=== PATIENT | female | born 1965 | race Caucasian/White ===

== ENCOUNTER 2022-06-29 11:20 | Observation (INO) | payer OTHER, SELFPAY ==
[2022-06-29] VITALS (21 sets, daily range): BP systolic 114–138; BP diastolic 67–89; PULSE 73–90; RESP 16–18; TEMP 36.5–36.7; O2SAT 93–99; BMI 29.2
[2022-06-29] MEDS: 0.9 % SODIUM CHLORIDE 1000 ml 1,000 ML IV (12:03)
[2022-06-29] MEDS: ONDANSETRON 2 MG/ML inj 4 MG IVP (12:07)
[2022-06-29] MEDS: HYDROmorphone 0.5 mg/0.5 ml inj 1 MG IVP (12:09)
[2022-06-29] MEDS: KETOROLAC 30 MG/ML inj IVP (12:14)
--- NOTE | 2022-06-29 12:32 | CRLHL7_ITS ---
For Patients: As a result of the Century Cures Act, medical imaging exams and procedure reports are released immediately into your electronic medical record. You may view this report before your referring provider. If you have questions, please contact your health care provider. Indication: Injury and pain Technique: Left ankle 3 views. Comparison: None Findings: Nondisplaced fracture of the lateral malleolus with overlying soft tissue swelling. Mortise intact. Intact distal tibia. Hindfoot alignment normal. Impression: Nondisplaced lateral malleolus fracture. Dictated by You Riggs MD @ 06/29/2022 1:55:49 PM (Electronically Signed)
--- NOTE | 2022-06-29 12:32 | CRLHL7_ITS ---
For Patients: As a result of the Century Cures Act, medical imaging exams and procedure reports are released immediately into your electronic medical record. You may view this report before your referring provider. If you have questions, please contact your health care provider. INDICATION: Patellar knee injury, fall TECHNIQUE: Knee radiograph 3 views right COMPARISON: 01/30/2020 FINDINGS: Bone: On the lateral exam, there is a subtle linear lucency in the mid body of the patella. An intramedullary nikki is present in the proximal tibia. A remote fracture deformity is present in the proximal fibula. Joint: The medial, lateral, and patellofemoral compartments are unremarkable. A small knee effusion is present. Soft tissue: Unremarkable. No radiopaque foreign bodies are seen. IMPRESSIONS: 1. On the lateral exam, there is a subtle linear lucency in the mid body of the patella. Correlation with physical exam for focal tenderness is recommended to exclude a nondisplaced fracture. 2. A small knee effusion is present. Dictated by Mu Dillon MD @ 06/29/2022 1:42:43 PM Dictated by: Mu Dillon MD @ 06/29/2022 13:43:42 (Electronically Signed)
--- NOTE | 2022-06-29 14:24 | ED_ITS ---
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 She is unable to bear weight or walk presented to the emergency room for further assessment. Denies any injury to her neck back shoulders or hip, she has a previous right leg injury, that resulted in a nikki, and screws. complaint: knee injury and ankle injury Injury: Left: ankle and Right: knee Type of Injury: inversion Severity: severe Relieving factors: nothing Exacerbating factors: weight bearing Context: fall Associated symptoms: snap/pop sensation Other symptoms: none Related Data Home Medications Medication Instructions Recorded Confirmed No Known Home Medications 06/29/22 06/29/22 Allergies Allergy/AdvReac Type Severity Reaction Status Date / Time No Known Drug Allergies Allergy Verified 06/29/22 11:35 Review of Systems Status of ROS: Reports: 10 or more systems reviewed and unremarkable except as noted in History and below PFSH PFS Social History Smoking Status: Former smoker Do you use any of these nicotine containing products: None Second hand tobacco smoke exposure: No How often do you have a drink containing alcohol: 2-3 times a week How many standard drinks containing alcohol do you have on a typical day: 5 or 6 How often do you have six or more drinks on one occasion: Weekly AUDIT-C Alcohol total score: 8 Non-prescribed substance use: denies use Exam Narrative: Exam Narrative: Patient is seen in room 2 in no apparent distress her neck is supple full range of motion pupils equal round reactive to light, chest is clear heart sounds are normal her abdomen is soft there is no guarding, her right knee does not move it all is swollen with an obvious effusion, she is more tender medially than laterally, she does not really have more than 10? of extension, and more than 30? of flexion. Left ankle is also very swollen over the lateral malleolar region, does not really have a lot of movement of dorsiflexion plantar flexion her DP and posterior tibial pulses are normal bilaterally as is her popliteal pulses, sensations normal, hips have normal range of motion. Const: Vital Signs, click to edit/add: Vital Signs - 24 hr 06/29/22 11:32 06/29/22 12:21 06/29/22 12:22 Temperature 97.8 F Pulse Rate 76 79 Pulse Rate [Pulse Oximeter] 84 Respiratory Rate 18 Blood Pressure 138/89 Blood Pressure [Ri ght Upper Arm] 136/78 Pulse Oximetry 97 95 93 Oxygen Delivery Me thod Room Air 06/29/22 12:23 06/29/22 12:30 06/29/22 12:32 Temperature Pulse Rate 79 90 85 Pulse Rate [Pulse Oximeter] Respiratory Rate Blood Pressure 132/75 Blood Pressure [Ri ght Upper Arm] Pulse Oximetry 94 94 94 Oxygen Delivery Me thod 06/29/22 13:00 06/29/22 13:01 06/29/22 13:02 Temperature Pulse Rate 89 89 89 Pulse Rate [Pulse Oximeter] Respiratory Rate Blood Pressure 138/77 Blood Pressure [Ri ght Upper Arm] Pulse Oximetry 99 96 99 Oxygen Delivery Me thod 06/29/22 13:30 06/29/22 13:35 06/29/22 14:00 Temperature Pulse Rate 76 82 84 Pulse Rate [Pulse Oximeter] Respiratory Rate Blood Pressure Blood Pressure [Ri ght Upper Arm] Pulse Oximetry 98 97 97 Oxygen Delivery Me thod 06/29/22 14:05 06/29/22 14:30 06/29/22 14:35 Temperature Pulse Rate 87 79 76 Pulse Rate [Pulse Oximeter] Respiratory Rate Blood Pressure Blood Pressure [Ri ght Upper Arm] Pulse Oximetry 99 97 96 Oxygen Delivery Me thod Course Reevaluation(s) Reevaluation #1: I had Steffi Cantor from Orthopedics see the patient also. I also had Dr. Frederick, from [facility] medicine, and we will have to mid the patient she cannot bear weight on either extremity, consideration of an MRI of her right knee tomorrow. There will be some scatter from her right leg mentation, but this will give us a better idea Vital Signs Vital signs: Initial Vital Signs Temperature 97.8 F 06/29/22 11:32 Temperature Source Temporal Artery Scan 06/29/22 11:32 Pulse Rate 84 06/29/22 11:32 Respiratory Rate 18 06/29/22 11:32 Blood Pressure 136/78 06/29/22 11:32 Blood Pressure Mean 97 06/29/22 11:32 Blood Pressure Position Supine 06/29/22 11:32 Pulse Oximetry 97 06/29/22 11:32 Oxygen Delivery Method 06/29/22 11:32 Vital Signs Temperature 97.8 F 06/29/22 11:32 Pulse Rate 84 06/29/22 11:32 Respiratory Rate 18 06/29/22 11:32 Blood Pressure 136/78 06/29/22 11:32 Pulse Oximetry 97 06/29/22 11:32 Oxygen Delivery Method 06/29/22 11:32 Temperature 97.8 F 06/29/22 11:32 Pulse Rate 76 06/29/22 14:35 Respiratory Rate 18 06/29/22 11:32 Blood Pressure 138/77 06/29/22 13:01 Pulse Oximetry 96 06/29/22 14:35 Oxygen Delivery Method 06/29/22 11:32 MDM - Extremity Injury (Lower) MDM Narrative Medical decision making narrative: Patient is seen and assessed, we will order x-rays we will give IV pain medication for this, Differential Diagnosis Differential diagnosis: Likely ankle sprain and strain, acute internal derangement of knee and ankle fracture Medical Records Attestation: I reviewed the patient's medical records. Imaging Data X-ray right knee, x-ray left ankle: Radiologist's impression: Patient: MIKKI SANCHEZ Facility: [facility] Site . Site : 1965 Study: XRay Extremity Left ANKLE 3V-06/29/2022 1:05:24 PM Ordering Physician: Rasheeda Azul Final Report: Indication: Injury and pain Technique: Left ankle 3 views. Comparison: None Findings: Nondisplaced fracture of the lateral malleolus with overlying soft tissue swelling. Mortise intact. Intact distal tibia. Hindfoot alignment normal. Impression: Nondisplaced lateral malleolus fracture. Dictated by You Riggs MD @ 06/29/2022 1:55:49 PM (Electronic Signature) Patient: [facility] Facility: [facility] Site . Site : 1965 Study: XRay Knee Right 3 VIEW-06/29/2022 1:06:02 PM Ordering Physician: Rasheeda Azul Final Report: INDICATION: Patellar knee injury, fall TECHNIQUE: Knee radiograph 3 views right COMPARISON: 01/30/2020 FINDINGS: Bone: On the lateral exam, there is a subtle linear lucency in the mid body of the patella. An intramedullary nikki is present in the proximal tibia. A remote fracture deformity is present in the proximal fibula. Joint: The medial, lateral, and patellofemoral compartments are unremarkable. A small knee effusion is present. Soft tissue: Unremarkable. No radiopaque foreign bodies are seen. IMPRESSIONS: 1. On the lateral exam, there is a subtle linear lucency in the mid body of the patella. Correlation with physical exam for focal tenderness is recommended to exclude a nondisplaced fracture. 2. A small knee effusion is present. Dictated by Mu Dillon MD @ 06/29/2022 1:42:43 PM Dictated by: Mu Dillon MD @ 06/29/2022 13:43:42 (Electronic Signature) Discharge Plan Discharge Clinical Impression: Fracture of distal end of left fibula, Patellar sleeve fracture of right knee Patient Disposition: Home w/ Parent or Adult Condition: Stable Instructions: Leg Fracture (ED), Patellar Fracture (ED), Patellar Fracture Repair (DC), Closed Reduction Internal Fixation of Leg Fracture in Adults (DC) Additional Instructions: Follow up appointment scheduled at the [facility] on 07/01 with a 1:10pm arrival time. [facility] [address] [place] [id number] Patient will be discharged home, with crutches, nonweightbearing on left leg. Follow-up with Orthopedics, she may decide to be seen by [facility] Prescription given for Percocet, keep leg elevated should be seen by Orthopedics within the next 48 hours, Prescriptions: No Action No Known Home Medications Follow Up/Referrals: Provider,Not a Local [Primary Care Provider] - Stand Alone Forms: [employer] Info Instructions
--- NOTE | 2022-06-29 15:40 | ED.NURSE ---
Provided crutches to pt, attempted to stand pt up from bed to trial crutch walking. Pt unable to bear weight on either leg due to pain. notified.
--- NOTE | 2022-06-29 16:33 | W.PC.EDHO ---
Primary Language: Mongolian Preferred Language: Orientation Status: [x] Alert & Oriented [] Slight Confusion [] Known Dx Dementia Transfers By: [] Assist of 1 x Assist of 2 [] Lift Active Medications Discontinued Medications Generic Name Dose Route Start Last Admin Trade Name Marleny PRN Reason Stop Dose Admin Hydromorphone HCl 1 mg 06/29/22 11:49 06/29/22 12:09 Hydromorphone 0.5 Mg/0.5 Ml Inj IVP 06/29/22 11:50 1 mg ONCE ONE Administration Sodium Chloride 1,000 mls @ 1,000 mls/hr 06/29/22 12:00 06/29/22 13:22 0.9 % Sodium Chloride 1000 Ml IV 06/29/22 12:59 Infused .Q1H YUNG Infusion Ketorolac Tromethamine 30 mg 06/29/22 11:49 06/29/22 12:14 Ketorolac 30 Mg/Ml Inj IVP 06/29/22 11:50 30 mg ONCE ONE Administration Ondansetron HCl 4 mg 06/29/22 11:49 06/29/22 12:07 Ondansetron 2 Mg/Ml Inj IVP 06/29/22 11:50 4 mg ONCE ONE Administration Description of Symptoms ED Triage Present Problem pt walking over grate and ankle twisted, pt fell, Description injured L ankle and r knee ED Triage Date of Onset of 06/29/22 Symptoms Pain Pain Description [Left Ankle] Sharp Pain Intensity [Left Ankle] 6 Pain Intensity [Left Ankle] 5 Pain Intensity 2 Pain Intensity 3 Pain Intensity 3 Pain Intensity 3 Pain Intensity 3 Pain Intensity 3 Pain Intensity 6 Pain Intensity 6 Pain Scale Used [Left Ankle] Numeric (1 - 10) Pain Scale Used Numeric (1 - 10) Pain Scale Used Numeric (1 - 10) Pain Scale Used Numeric (1 - 10) Pain Scale Used Numeric (1 - 10) Pain Scale Used Numeric (1 - 10) Pain Scale Used Numeric (1 - 10) Pain Scale Used Numeric (1 - 10) Pain Scale Used Numeric (1 - 10) IV Insertion/Site Date of IV Line Insertion [ 06/29/22 Right Antecubital] Oxygen Administration Pulse Oximetry 96 Pulse Oximetry 97 Pulse Oximetry 99 Pulse Oximetry 97 Pulse Oximetry 97 Pulse Oximetry 98 Pulse Oximetry 99 Pulse Oximetry 96 Pulse Oximetry 99 Pulse Oximetry 94 Pulse Oximetry 94 Pulse Oximetry 94 Pulse Oximetry 93 Pulse Oximetry 95 Pulse Oximetry 97 Oxygen Delivery Method Room Air
--- NOTE | 2022-06-29 16:40 | ED.NURSE ---
Report called to M/S RN.
[2022-06-29] MEDS: OxyCODONE/APAP 5-325 TABLET 2 TAB PO (16:44)
--- NOTE | 2022-06-29 16:48 | P.IMHP_ITS ---
Hospitalist- H&P: HPI History of Present Illness Date Seen: 06/29/22 Chief complaint: broken L ankle Narrative: Padmini Rojo is a 56 year old female who presented to the hospital after a fall at work. 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 She had immediate pain in her left ankle and right knee and was unable to bear secondary to discomfort. ER course and findings: - nondisplaced fracture of left lateral malleolus - small knee effusion with subtle linear lucency of patella on right knee x-ray - Patient seen by Orthopedic surgery in the emergency room; left lateral malleolus fracture is non operative, they recommend a right knee MRI Patient is unable to bear weight for discharge home and requires further imaging; she will be admitted to the hospital for therapies and pain control. Padmini is generally healthy; she takes no medications on a daily basis. Her PCP is Dr. Mendiola locally. She had a previous ORIF on the right, after a tib-fib fracture in 2019, she has also had C-sections. She is a nonsmoker, regular alcohol user, no concern for withdrawals. 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 Three grown children. Review of Systems Status of ROS: Reports: 10 or more systems reviewed and unremarkable except as noted in History and below [facility] Medical History (Updated 06/29/22 @ 17:03 by Ana Frederick MD) History of fracture of tibia Surgical History (Updated 06/29/22 @ 17:03 by Ana Frederick MD) History of section Social History Smoking Status: Former smoker Do you use any of these nicotine containing products: None Second hand tobacco smoke exposure: No How often do you have a drink containing alcohol: 2-3 times a week How many standard drinks containing alcohol do you have on a typical day: 5 or 6 How often do you have six or more drinks on one occasion: Weekly AUDIT-C Alcohol total score: 8 Non-prescribed substance use: denies use Meds Home Medications and Allergies Home Medications Medication Instructions Recorded Confirmed Type No Known Home Medications 06/29/22 06/29/22 History Allergies Allergy/AdvReac Type Severity Reaction Status Date / Time No Known Drug Allergies Allergy Verified 06/29/22 11:35 Exam Narrative: Exam Narrative: GEN: Alert and oriented, laying comfortably in ER bed and speaking in full sentences HEENT: Normal external ears, EOMIs bilaterally CV: RRR, No concerning murmurs, rubs, or gallops R: LCTA bilaterally without concerning wheezing, rales, or rhonchi Ext: wwp, no concerning edema, has splint over left ankle and brace over right knee Skin: No concerning skin lesions or rashes on exposed skin Neuro: Nonfocal Psych: Appropriate Const: Vital Signs, click to edit/add: Vital Signs - 24 hr 06/29/22 11:32 06/29/22 12:21 06/29/22 12:22 Temperature 97.8 F Pulse Rate 76 79 Pulse Rate [Pulse Oximeter] 84 Respiratory Rate 18 Blood Pressure 138/89 Blood Pressure [Ri ght Upper Arm] 136/78 Pulse Oximetry 97 95 93 Oxygen Delivery Me od Room Air 06/29/22 12:23 06/29/22 12:30 06/29/22 12:32 Temperature Pulse Rate 79 90 85 Pulse Rate [Pulse Oximeter] Respiratory Rate Blood Pressure 132/75 Blood Pressure [Ri ght Upper Arm] Pulse Oximetry 94 94 94 Oxygen Delivery Me thod 06/29/22 13:00 06/29/22 13:01 06/29/22 13:02 Temperature Pulse Rate 89 89 89 Pulse Rate [Pulse Oximeter] Respiratory Rate Blood Pressure 138/77 Blood Pressure [Ri ght Upper Arm] Pulse Oximetry 99 96 99 Oxygen Delivery La thod 06/29/22 13:30 06/29/22 13:35 06/29/22 14:00 Temperature Pulse Rate 76 82 84 Pulse Rate [Pulse Oximeter] Respiratory Rate Blood Pressure Blood Pressure [Ri ght Upper Arm] Pulse Oximetry 98 97 97 Oxygen Delivery Me thod 06/29/22 14:05 06/29/22 14:30 06/29/22 14:35 Temperature Pulse Rate 87 79 76 Pulse Rate [Pulse Oximeter] Respiratory Rate Blood Pressure Blood Pressure [Ri ght Upper Arm] Pulse Oximetry 99 97 96 Oxygen Delivery Me thod Hospitalist - H&P: Result Imaging XRAY: Attestation: I have reviewed the pertinent imaging results. Radiologist's impression: For Patients:? As a result of the Cures Act, medical imaging exams and procedure reports are released immediately into your electronic medical record.? You may view this report before your referring provider.? If you have questions, please contact your health care provider. Indication: Injury and pain Technique: Left ankle 3 views. Comparison: None Findings: Nondisplaced fracture of the lateral malleolus with overlying soft tissue swelling. Mortise intact. Intact distal tibia. Hindfoot alignment normal. Impression: Nondisplaced lateral malleolus fracture. Dictated by You Riggs MD @ 06/29/2022 1:55:49 PM INDICATION: Patellar knee injury, fall TECHNIQUE: Knee radiograph 3 views right COMPARISON: 01/30/2020 FINDINGS: Bone: On the lateral exam, there is a subtle linear lucency in the mid body of the patella. An intramedullary nikki is present in the proximal tibia. A remote fracture deformity is present in the proximal fibula. Joint: The medial, lateral, and patellofemoral compartments are unremarkable. A small knee effusion is present. Soft tissue: Unremarkable. No radiopaque foreign bodies are seen. IMPRESSIONS: 1. On the lateral exam, there is a subtle linear lucency in the mid body of the patella. Correlation with physical exam for focal tenderness is recommended to exclude a nondisplaced fracture. 2. A small knee effusion is present. Dictated by Mu Dillon MD @ 06/29/2022 1:42:43 PM Dictated by: Mu Dillon MD @ 06/29/2022 13:43:42 Assessment and Plan Assessment and plan (1) Fracture of distal end of left fibula: Status: Acute (2) Patellar sleeve fracture of right knee: Status: Acute Plan - appreciate input from Orthopedic Surgery - MRI of R knee ordered - pain control - PT and OT ordered to assist with discharge planning so a Leodan 0
[2022-06-29 17:33] LABS: PCR FLU A Negative PCR FLU A (Negative); PCR FLU B Negative PCR FLU B (Negative)
[2022-06-29 17:34] LABS: SARS PCR* Negative SARS-CoV-2 (Negative)
[2022-06-29] MEDS: HYDROmorphone 2 MG TABLET PO (20:44)
[2022-06-29] MEDS: ACETAMINOPHEN 325 MG TABLET 975 MG PO (20:44)
--- NOTE | 2022-06-29 23:41 | PC.NURSE ---
Shift [id number]- Patient arrives to floor at approximately 1800. She is able to transfer herself from cart to bed, though slide offered. She states need to use bathroom, bedpan offered. She became uncomfortable with help using bedpan and asked to wait. She is offered to use it to her ability independently and to her comfort level and we will assist as needed. in this evening and helps her use bedpan. Patient declines pain medication until tonight, PRN pain medication given- though she states little relief. IV to be initiated for further pain medication administration. Appetite is intact.
--- NOTE | 2022-06-30 | CRLHL7_ITS ---
For Patients: As a result of the Century Cures Act, medical imaging exams and procedure reports are released immediately into your electronic medical record. You may view this report before your referring provider. If you have questions, please contact your health care provider. HISTORY: Knee pain and swelling after falling injury. TECHNIQUE: Routine knee protocol. FINDINGS: Bones and soft tissues: There is an undisplaced multi directional fracture involving the inferior 1/2 of the patella with intra-articular extension. There is bone marrow and soft tissue edema about this region but no significant distraction of the fragments is noted. This fracture is not evident on the plain film study of 06/29/2022. The long bones appear intact. There is a large lipohemarthrosis present. Extensor mechanism: The quadriceps and patellar tendons are intact. Medial compartment: Medial meniscus: The medial meniscus is intact without evidence for tearing. Articular cartilage: Moderate grade 2/3 chondromalacia is present. Lateral compartment: Lateral meniscus: The lateral meniscus is intact without evidence for tearing. Articular cartilage: The articular cartilage surfaces are smooth and normally maintained. Patellofemoral compartment: Mild grade 2 chondromalacia of both facets the patella is noted. Ligaments: The anterior cruciate, posterior cruciate, medial collateral and lateral collateral ligaments are intact. Incidental note is made of metallic nikki in the proximal femur. IMPRESSION: 1. Nondisplaced intra-articular fracture of the lower 1/2 of the patella. No meniscus or ligament tear is noted. 2. 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 Dictated by Yariel Thompson MD @ 06/30/2022 12:21:44 PM (Electronically Signed)
[2022-06-30] MEDS: LORazepam 0.5 MG TABLET PO ×2 (01:02→02:32)
[2022-06-30 03:00] VITALS: BP 110/72; PULSE 77; RESP 16; TEMP 36.5; O2SAT 95
[2022-06-30] MEDS: KETOROLAC 30 MG/ML inj IVP ×3 (05:34→22:53)
[2022-06-30] MEDS: HYDROmorphone 2 MG TABLET PO ×4 (05:34→18:12)
--- NOTE | 2022-06-30 06:39 | PC.NURSE ---
: pt pleasant and cooperative. C/o pain 01/05, see eMAR. Pt in bed throughout shift, requests bedpan as needed. VSS. PRN Ativan given for sleep, pt was unable to get much sleep. 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 ??
[2022-06-30 07:07] LABS: Basophils Percent Auto 0.7 % (0.0-3.0); Eosinophils Percent Auto 2.8 % (0.0-7.0); Hematocrit 36.7 % (33.0-51.0); Hemoglobin* 12.2 gm/dL (12.0-16.0); Immature Granulocytes Abs Auto 0.01 K/uL (0.00-0.30); Lymphocytes Percent Auto 30.2 % (20-44); Mean Corpuscular HGB Conc 33 gm/dL (32-36); Mean Corpuscular Hemoglobin 31 pg (26-34); Mean Corpuscular Volume 93 fL (80-100); Monocytes Percent Auto 8.5 % (0.0-11.0); Neutrophils Percent Auto 57.6 % (42.0-72.0); Platelet Count* 165 K/uL (140-440); RDW Coefficient of Variation % 12.8 % (11.5-15.5); Red Blood Count 3.94 m/uL (4.00-5.20); White Blood Count* 4.34 K/uL (4.50-11.00)
[2022-06-30 07:16] LABS: Chloride* 107 mmol/L (96-114)
[2022-06-30 07:17] LABS: Potassium* 3.6 mmol/L (3.6-5.1); Sodium* 140 mmol/L (135-149)
[2022-06-30 07:19] LABS: Creatinine* 0.6 mg/dL (0.5-1.5); Est. Creatinine Clearance* 91.48; Estimated Glomerular Filt Rate 106 ml/min
[2022-06-30 07:20] LABS: Blood Urea Nitrogen* 13 mg/dL (7-30); Calcium* 8.5 mg/dL (8.4-10.6); Carbon Dioxide* 25 mmol/L (20-32); Glucose* 97 mg/dL (60-115); Slide Review Reflex No
[2022-06-30 08:28] VITALS: BP 110/74; PULSE 77; PULSE 82; RESP 16; TEMP 36.5; O2SAT 97
[2022-06-30 11:00] VITALS: BP 118/74; PULSE 79; RESP 16; TEMP 36.6; O2SAT 97
[2022-06-30] MEDS: ACETAMINOPHEN 325 MG TABLET 975 MG PO ×2 (12:32→22:53)
[2022-06-30] MEDS: SENNOSIDES/DOCUSATE TABLET 1 TAB PO (12:32)
--- NOTE | 2022-06-30 13:09 | P.ORCN_ITS ---
History of Present Illness HPI Time Seen by Provider: 06:30 Date Seen: 06/30/22 Consult date: 06/29/22 Requesting physician: Jorge Alberto Vanessa Chief complaint: broken L ankle Narrative: I saw Padmini yesterday in the emergency room and again this morning. She is a very pleasant 56-year-old young lady, who presented to the emergency room yesterday, date of injury 06/29/2022 for evaluation of right knee and left ankle discomfort. 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 She was unable to bear weight on either extremity. She has had a nikki and screws placement in her right tibia previously. Since she was unable to bear weight on both lower extremity she was admitted to the hospital. She was placed into a knee immobilizer on the right after a fracture of the patella was likely seen on x-ray and fracture of the left distal fibula. She was placed into a Sedrick Cain splint on the left lower extremity. Review of Systems Narrative: Patient denies nausea, vomiting, fever, chills, chest pain, shortness of breath [facility] Medical History (Updated 06/30/22 @ 13:20 by Steffi Ramos PA-C) History of fracture of tibia Surgical History History of section Social History Smoking Status: Former smoker Do you use any of these nicotine containing products: None Second hand tobacco smoke exposure: No How often do you have a drink containing alcohol: 2-3 times a week How many standard drinks containing alcohol do you have on a typical day: 5 or 6 How often do you have six or more drinks on one occasion: Weekly AUDIT-C Alcohol total score: 8 Non-prescribed substance use: denies use Meds Home Medications and Allergies Home Medications Medication Instructions Recorded Confirmed Type No Known Home Medications 06/29/22 06/29/22 History Allergies Allergy/AdvReac Type Severity Reaction Status Date / Time No Known Drug Allergies Allergy Verified 06/29/22 11:35 Ortho Exam Narrative Exam Narrative: Examination of the right knee shows the skin is intact. No erythema or warmth or evidence of infection. Large effusion is present. Unable to straight leg raise. Tenderness over the patella. Exquisite tenderness over the medial proximal tibia. Nontender over the lateral proximal tibia. Surgical scars are well-healed right lower extremity. The knee is stable to varus and valgus s tress exams and Allen's, anterior drawer, posterior drawer, however she has significant pain with these maneuvers. Difficult to assess strength about the knee and distally due to pain level. Sensation is intact to light touch, capillary refill less than 2 seconds. Bilateral calves are soft and nontender. No pretibial edema. No significant soft tissue edema about the knee. The splint is removed. Examination of the left ankle shows swelling over the lateral malleolus. No ecchymosis currently. No erythema or warmth or sign of infection. No medial ankle swelling. Nontender over the medial malleolus or medial deltoid ligament. Nontender over the ATFL or CFL. Very tender over the distal fibula. Able to range the ankle. Nontender over the proximal tibia and fibula. Range of motion of the left knee is normal and without pain. Range of motion of the toes is normal without pain. CMS intact left lower extremity. After placing her into a medium Cam walker, tall, she is comfortable in this brace and she is able to stand comfortably and weightbear on the left lower extremity without pain. She is also placed into a Tubigrip size D for comfort. Const Vital Signs, click to edit/add: Vital Signs - 24 hr 06/29/22 13:30 06/29/22 13:35 06/29/22 14:00 Temperature Pulse Rate 76 82 84 Pulse Rate [Left Dorsalis Pedis] Respiratory Rate Blood Pressure [Left Arm] Blood Pressure [Right Arm] Pulse Oximetry 98 97 97 Oxygen Delivery Method 06/29/22 14:05 06/29/22 14:30 06/29/22 14:35 Temperature Pulse Rate 87 79 76 Pulse Rate [Left Dorsalis Pedis] Respiratory Rate Blood Pressure [Left Arm] Blood Pressure [Right Arm] Pulse Oximetry 99 97 96 Oxygen Delivery Method 06/29/22 14:36 06/29/22 16:47 06/29/22 17:00 Temperature Pulse Rate 74 81 77 Pulse Rate [Left Dorsalis Pedis] Respiratory Rate Blood Pressure [Left Arm] Blood Pressure [Right Arm] Pulse Oximetry 97 96 95 Oxygen Delivery Method 06/29/22 17:30 06/29/22 18:36 06/29/22 18:36 Temperature 98.1 F 98.1 F Pulse Rate 73 Pulse Rate [Left Dorsalis Pedis] 74 74 Respiratory Rate 16 16 Blood Pressure [Left Arm] 125/74 Blood Pressure [Right Arm] 125/74 Pulse Oximetry 93 97 97 Oxygen Delivery Method Room Air 06/29/22 23:00 06/29/22 23:00 06/30/22 03:00 Temperature 97.7 F 97.7 F Pulse Rate Pulse Rate [Left Dorsalis Pedis] 75 75 77 Respiratory Rate 16 16 16 Blood Pressure [Left Arm] 114/67 110/72 Blood Pressure [Right Arm] Pulse Oximetry 94 95 Oxygen Delivery Method Room Air Room Air Results Labs Labs: Laboratory Results - last 48 hr 06/29/22 06/30/22 06/30/22 16:52 06:38 06:38 WBC 4.34 L RBC 3.94 L Hgb 12.2 Hct 36.7 MCV 93 MCH 31 MCHC 33 RDW Coeff of Reva 12.8 Plt Count 165 Neut % (Auto) 57.6 Lymph % (Auto) 30.2 [place] % (Auto) 8.5 Eos % (Auto) 2.8 Baso % (Auto) 0.7 Neut # (Auto) 2.50 Lymph # (Auto) 1.30 [place] # (Auto) 0.40 Eos # (Auto) 0.10 Baso # (Auto) 0.00 Abs Immat Gran (auto) 0.01 Sodium 140 Potassium 3.6 Chloride 107 Carbon Dioxide 25 BUN 13 Creatinine 0.6 Estimated Creat Clear 91.48 Estimated GFR 106 Glucose 97 Calcium 8.5 SARS-CoV-2 (PCR) Negative SARS-CoV-2 Influenza Type A (PCR) Negative PCR FLU A Influenza Type B (PCR) Negative PCR FLU B Assessment and Plan Assessment and plan (1) Fracture of distal end of left fibula: Status: Acute Assessment and Plan: After the splint is removed on the left lower extremity, a size D Tubigrip is applied and a medium a tall cam walker. She is allowed to stand up in her room next to her bed, holding onto hand rails and is able to bear weight on the left lower extremity without pain. She tolerated this very well. This is encouraging. She is dispensed a Tubigrip and medium Cam walker. She can weightbear as tolerated left lower extremity. Total time spent: Total time spent is greater than 50% in coordination of care (as documented) at patient's floor/unit and/or counseling patient: (2) Right patella fracture: Problem comment: Date of injury 06/30/2022, work Status: Acute Assessment and Plan: An MRI is performed today of the right lower extremity knee. This shows a nondisplaced intra-articular fracture of the lower 1/2 of the patella. No meniscus or ligamentous tear is noted. 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 Metallic nikki in the tibia. There is a large effusion. Patient is able to weightbear as tolerated in a knee immobilizer right lower extremity. Physical therapy is ordered to assess her weight-bearing. She can ambulate as tolerated in the knee immobilizer. She will refrain from range of motion of the right knee. Physical therapy has been ordered to assess ambulation and safety upon discharge. If she and physical therapy determine she is safe to return home today, she will discharge to home later today. I have spoken with Dr. Berry regarding the same. Patient should be encouraged to ambulate frequently, every hour throughout the day and pump calves while at rest to prevent DVT. Dr. Berry will look into determining if DVT prophylaxis is needed. Note, dictation performed with voice recognition, and as a result, wrong word or sound like substitutions may have occurred. There may be areas in the script that have gone on detected. Please consider this when interpreting information found in the chart. Plan Follow-up with orthopedics in a week with new x-rays of the right knee and left ankle. If the ankle remains stable, will continue cam walker for 6 weeks. Will continue knee immobilizer for 6 weeks as well if the fracture remains nondisplaced. She can weight bear as tolerated bilateral lower extremities.
--- NOTE | 2022-06-30 14:39 | PM.IMPN1 ---
Progress Note: A&P Assessment and plan (1) Right patella fracture: Problem details: Date of injury 06/30/2022, work Status: Acute (2) Fracture of distal end of left fibula: Status: Acute (3) Right knee pain: Status: Acute (4) Patellar sleeve fracture of right knee: Status: Acute Plan Appreciate Ortho's recommendations. Patient unable to ambulate more than 3 steps this afternoon with PT, due to pain. We discussed MRI results, pain medications, return to work. As per Ortho, patient should be encouraged to ambulate frequently, every hour throughout the day and pump calves while at rest to prevent DVT. Discussed the symptoms of VTE with the patient. She has no personal history of bleeding or clotting disorders. Since she is not in a plaster cast, I think the risk of anticoagulation outweighs the benefit. Continue working with PT and OT today. Plan on discharging home in the morning. If she is unable to ambulate, then perhaps she could use a wheelchair at home otherwise we will have to consider SNF. Time Spent With Patient Total time spent: Today I spent 35 minutes rounding on the patient. Greater than 50% included discussing care with the patient, team, reviewing data, updating and managing the care plan. Subjective Time Seen by Provider: 08:05 Date Seen: 06/30/22 Interval history: This morning Padmini said she was feeling well. She had not yet ambulated because we did not yet have the MRI results. This afternoon, her and the physical therapist were in the room when I saw her to give her results and discuss plan for going home. Her affect was much changed from the morning. She was tense and terse. When I gave her the results, she asked Isn't there anything else? She also had questions about pain medications and return to work. Exam Narrative: Exam Narrative: General: No acute distress. Awake, alert, oriented x3. No pallor. No jaundice. Cardiovascular: Regular rate and rhythm. No murmurs, gallops, or rubs. Respiratory: Clear to auscultation bilaterally. No wheezes or crackles. Abdomen: Bowel sounds present. Soft, nondistended, nontender. Extremities: Left lower extremity is in a Cam boot. There is some small ecchymosis just below the lateral knee. Right lower extremity knee immobilizer was removed from my exam and then replaced afterward. Right knee is edematous and ecchymotic. She is tender over the kneecap, the medial superior tibia and posteriorly. Const: Vital Signs, click to edit/add: Vital Signs - 24 hr 06/29/22 16:47 06/29/22 17:00 06/29/22 17:30 Temperature Pulse Rate 81 77 73 Pulse Rate [Left D orsalis Pedis] Respiratory Rate Blood Pressure [Le ft Arm] Blood Pressure [Ri ght Arm] Pulse Oximetry 96 95 93 Oxygen Delivery Me thod 06/29/22 18:36 06/29/22 18:36 06/29/22 23:00 Temperature 98.1 F 98.1 F Pulse Rate Pulse Rate [Left D orsalis Pedis] 74 74 75 Respiratory Rate 16 16 16 Blood Pressure [Le ft Arm] 125/74 Blood Pressure [Ri ght Arm] 125/74 Pulse Oximetry 97 97 Oxygen Delivery Me thod Room Air 06/29/22 23:00 06/30/22 03:00 Temperature 97.7 F 97.7 F Pulse Rate Pulse Rate [Left D orsalis Pedis] 75 77 Respiratory Rate 16 16 Blood Pressure [Le ft Arm] 114/67 110/72 Blood Pressure [Ri ght Arm] Pulse Oximetry 94 95 Oxygen Delivery Me thod Room Air Room Air Labs Labs: Laboratory Results - last 24 hr 06/29/22 06/30/22 06/30/22 16:52 06:38 06:38 WBC 4.34 L RBC 3.94 L Hgb 12.2 Hct 36.7 MCV 93 MCH 31 MCHC 33 RDW Coeff of Reva 12.8 Plt Count 165 Neut % (Auto) 57.6 Lymph % (Auto) 30.2 [place] % (Auto) 8.5 Eos % (Auto) 2.8 Baso % (Auto) 0.7 Neut # (Auto) 2.50 Lymph # (Auto) 1.30 [place] # (Auto) 0.40 Eos # (Auto) 0.10 Baso # (Auto) 0.00 Abs Immat Gran (auto) 0.01 Sodium 140 Potassium 3.6 Chloride 107 Carbon Dioxide 25 BUN 13 Creatinine 0.6 Estimated Creat Clear 91.48 Estimated GFR 106 Glucose 97 Calcium 8.5 SARS-CoV-2 (PCR) Negative SARS-CoV-2 Influenza Type A (PCR) Negative PCR FLU A Influenza Type B (PCR) Negative PCR FLU B Ordering Physician: Ana Frederick M.D. Date of Service: 06/30/22 Procedure(s): knee RT wo con Accession Number(s): [id number] cc: Ana Frederick M.D.; Provider,Not a Local ~ For Patients: As a result of the Cures Act, medical imaging exams and procedure reports are released immediately into your electronic medical record. You may view this report before your referring provider. If you have questions, please contact your health care provider. HISTORY: Knee pain and swelling after falling injury. TECHNIQUE: Routine knee protocol. FINDINGS: Bones and soft tissues: There is an undisplaced multi directional fracture involving the inferior 1/2 of the patella with intra-articular extension. There is bone marrow and soft tissue edema about this region but no significant distraction of the fragments is noted. This fracture is not evident on the plain film study of 06/29/2022. The long bones appear intact. There is a large lipohemarthrosis present. Extensor mechanism: The quadriceps and patellar tendons are intact. Medial compartment: Medial meniscus: The medial meniscus is intact without evidence for tearing. Articular cartilage: Moderate grade 2/3 chondromalacia is present. Lateral compartment: Lateral meniscus: The lateral meniscus is intact without evidence for tearing. Articular cartilage: The articular cartilage surfaces are smooth and normally maintained. Patellofemoral compartment: Mild grade 2 chondromalacia of both facets the patella is noted. Ligaments: The anterior cruciate, posterior cruciate, medial collateral and lateral collateral ligaments are intact. Incidental note is made of metallic nikki in the proximal femur. IMPRESSION: 1. Nondisplaced intra-articular fracture of the lower 1/2 of the patella. No meniscus or ligament tear is noted. 2. 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 Dictated by Yariel Thompson MD @ 06/30/2022 12:21:44 PM (Electronically Signed)
[2022-06-30 15:15] VITALS: BP 124/78; PULSE 74; RESP 16; TEMP 36.6; O2SAT 96
[2022-06-30 19:30] VITALS: BP 122/69; PULSE 90; RESP 16; TEMP 36.7; O2SAT 95
--- NOTE | 2022-06-30 19:41 | PC.NURSE ---
VSS AND AFEBRILE. LS CLEAR. BOWEL SOUNDS ACTIVE AND PASSING GAS. PATIENT WAS GIVEN SENNA THIS AFTERNOON AND HAS HAD 3 STOOLS TODAY. PATIENT REFUSED SCHEDULED MIRALAX. TOLERATING REGULAR DIET. PAIN CONTROLLED WITH PO DILAUDID, TYLENOL AND TORADOL. KNEE IMMOBILIZER TO RIGHT KNEE. ACTIVE ICE ON. BOOT TO LEFT FOOT. UP WITH A1, WALKER AND GAIT BELT TO BATHROOM. TOLERATING ACTIVITY WELL WITH SBA.
[2022-06-30 23:00] VITALS: BP 114/72; PULSE 69; RESP 16; TEMP 36.5; O2SAT 97
[2022-07-01 03:00] VITALS: RESP 16
--- NOTE | 2022-07-01 07:12 | P.DS_ITS ---
DS: Providers Provider Time Seen by Provider: 09:45 Date Seen: 07/01/22 Date of admission: 06/29/22 16:52 Primary care physician: Not a Local Provider Admitting Clinician: Ermias Romero MD Consults: 06/29/22 17:08 Consult to Physical Therapy [CONS] Routine Comment: Reason(s) for PT Consult:: Evaluate and Treat Any Restrictions?:: Partial Wt Bearing 06/29/22 17:09 Consult to Occupational Therapy [CONS] Routine Comment: Reason(s) for OT Consult:: Evaluate and Treat Any Restrictions?:: Partial Wt Bearing 06/30/22 12:40 Consult to Physical Therapy [CONS] Urgent Comment: assess weight bearing & ability to dc to home Reason(s) for PT Consult:: Evaluate Ambulation Any Restrictions?:: Wt Bearing as Tolerated Comment: patella fracture right, nondisplaced with large effusion. May wb in knee immobilizer. left freedman A ankle fracture, in a CAM walker, weight bear as tolerated in boot. 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 She fell inverting her left ankle and falling onto her right knee. She had immediate pain and discomfort in these areas and was unable to bear weight due to pain. She is found to have a nondisplaced fracture left lateral malleolus and a right patellar fracture. These are nonsurgical injuries at this time and she was placed in a left cam boot and a right knee immobilizer. Due to ongoing pain it was difficult for her to ambulate enough to go home on 06/30/2002. She continued to work with PT and OT. She is doing very well today; ambulating well with cam walker, knee imobilizer and walker. She has not needed as much pain medication today. Status at Discharge Functional status at discharge: uses cane/walker Overall status at discharge: patient is progressing back to baseline Time Spent with Patient Time attestation: Total time spent providing and/or coordinating discharge services: Exam Narrative: Exam Narrative: General: No acute distress. Awake, alert, oriented x3. No pallor. No jaundice. Cardiovascular: Regular rate and rhythm. No murmurs, gallops, or rubs. Respiratory: Clear to auscultation bilaterally. No wheezes or crackles. Abdomen: Bowel sounds present. Soft, nondistended, nontender. Extremities: Left lower extremity is in a Cam boot. Right lower extremity is in a knee immobilizer. Const: Vital Signs, click to edit/add: Vital Signs - 24 hr 06/30/22 08:28 06/30/22 08:28 06/30/22 11:00 Temperature 97.7 F 98 F Pulse Rate [Left D orsalis Pedis] 77 82 79 Pulse Rate [Right Pulse Oximeter] Respiratory Rate 16 16 16 Blood Pressure [Le ft Arm] Blood Pressure [Ri ght Arm] 110/74 118/74 Pulse Oximetry 97 97 Oxygen Delivery Me thod Room Air Room Air 06/30/22 15:15 06/30/22 15:15 06/30/22 19:30 Temperature 97.9 F 98.1 F Pulse Rate [Left D orsalis Pedis] 74 90 Pulse Rate [Right Pulse Oximeter] Respiratory Rate 16 16 16 Blood Pressure [Le ft Arm] 122/69 Blood Pressure [Ri ght Arm] 124/78 Pulse Oximetry 96 95 Oxygen Delivery Me thod Room Air Room Air 06/30/22 23:00 06/30/22 23:00 07/01/22 03:00 Temperature 97.7 F Pulse Rate [Left D orsalis Pedis] Pulse Rate [Right Pulse Oximeter] 69 69 Respiratory Rate 16 16 16 Blood Pressure [Le ft Arm] Blood Pressure [Ri ght Arm] 114/72 Pulse Oximetry 97 Oxygen Delivery Me thod Room Air Room Air Documenting provider has reviewed patient's vital signs: yes DS: Data Data Completed and Pending Completed studies during hospitalization: Ordering Physician: Jorge Alberto Vanessa M.D. Date of Service: 06/29/22 Procedure(s): XR ankle LT min 3V Accession Number(s): [id number] cc: Provider,Not a Local ; Jorge Alberto Vanessa M.D.~ For Patients: As a result of the Cures Act, medical imaging exams and procedure reports are released immediately into your electronic medical record. You may view this report before your referring provider. If you have questions, please contact your health care provider. Indication: Injury and pain Technique: Left ankle 3 views. Comparison: None Findings: Nondisplaced fracture of the lateral malleolus with overlying soft tissue swelling. Mortise intact. Intact distal tibia. Hindfoot alignment normal. Impression: Nondisplaced lateral malleolus fracture. Dictated by You Riggs MD @ 06/29/2022 1:55:49 PM (Electronically Signed) Ordering Physician: Jorge Alberto Vanessa M.D. Date of Service: 06/29/22 Procedure(s): XR knee RT 3V Accession Number(s): [id number] cc: Provider,Not a Local ; Jorge Alberto Vanessa M.D.~ For Patients: As a result of the Cures Act, medical imaging exams and procedure reports are released immediately into your electronic medical record. You may view this report before your referring provider. If you have questions, please contact your health care provider. INDICATION: Patellar knee injury, fall TECHNIQUE: Knee radiograph 3 views right COMPARISON: 01/30/2020 FINDINGS: Bone: On the lateral exam, there is a subtle linear lucency in the mid body of the patella. An intramedullary nikki is present in the proximal tibia. A remote fracture deformity is present in the proximal fibula. Joint: The medial, lateral, and patellofemoral compartments are unremarkable. A small knee effusion is present. Soft tissue: Unremarkable. No radiopaque foreign bodies are seen. IMPRESSIONS: 1. On the lateral exam, there is a subtle linear lucency in the mid body of the patella. Correlation with physical exam for focal tenderness is recommended to exclude a nondisplaced fracture. 2. A small knee effusion is present. Dictated by Mu Dillon MD @ 06/29/2022 1:42:43 PM Dictated by: Mu Dillon MD @ 06/29/2022 13:43:42 (Electronically Signed) Ordering Physician: Ana Frederick M.D. Date of Service: 06/30/22 Procedure(s): MR knee RT wo con Accession Number(s): [id number] cc: Ana Frederick M.D.; Provider,Not a Local ~ For Patients: As a result of the 21st Century Cures Act, medical imaging exams and procedure reports are released immediately into your electronic medical record. You may view this report before your referring provider. If you have questions, please contact your health care provider. HISTORY: Knee pain and swelling after falling injury. TECHNIQUE: Routine knee protocol. FINDINGS: Bones and soft tissues: There is an undisplaced multi directional fracture involving the inferior 1/2 of the patella with intra-articular extension. There is bone marrow and soft tissue edema about this region but no significant distraction of the fragments is noted. This fracture is not evident on the plain film study of 06/29/2022. The long bones appear intact. There is a large lipohemarthrosis present. Extensor mechanism: The quadriceps and patellar tendons are intact. Medial compartment: Medial meniscus: The medial meniscus is intact without evidence for tearing. Articular cartilage: Moderate grade 2/3 chondromalacia is present. Lateral compartment: Lateral meniscus: The lateral meniscus is intact without evidence for tearing. Articular cartilage: The articular cartilage surfaces are smooth and normally maintained. Patellofemoral compartment: Mild grade 2 chondromalacia of both facets the patella is noted. Ligaments: The anterior cruciate, posterior cruciate, medial collateral and lateral collateral ligaments are intact. Incidental note is made of metallic nikki in the proximal femur. IMPRESSION: 1. Nondisplaced intra-articular fracture of the lower 1/2 of the patella. No meniscus or ligament tear is noted. 2. 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 Dictated by Yariel Thompson MD @ 06/30/2022 12:21:44 PM (Electronically Signed) Labs on day of discharge: Labs from last 24 hours 06/30/22 06/30/22 06:38 06:38 WBC 4.34 L RBC 3.94 L Hgb 12.2 Hct 36.7 MCV 93 MCH 31 MCHC 33 RDW Coeff of Reva 12.8 Plt Count 165 Neut % (Auto) 57.6 Lymph % (Auto) 30.2 [place] % (Auto) 8.5 Eos % (Auto) 2.8 Baso % (Auto) 0.7 Neut # (Auto) 2.50 Lymph # (Auto) 1.30 [place] # (Auto) 0.40 Eos # (Auto) 0.10 Baso # (Auto) 0.00 Abs Immat Gran (auto) 0.01 Imm/Tot Granulo (auto) Not Reportable Sodium 140 Potassium 3.6 Chloride 107 Carbon Dioxide 25 BUN 13 Creatinine 0.6 Estimated Creat Clear 91.48 Estimated GFR 106 Glucose 97 Calcium 8.5 Discharge Plan Discharge Disposition: Home, Self-Care Date of Admission: 06/29/22 16:52 Attending Provider on Discharge: Amy Berry Consulting Providers: Steffi Ramos Primary Care Provider: Provider,Not a Local Condition: Stable Anticipated Discharge Date/Time: 07/01/22 11:00 Discharge Medications: New sennosides-docusate sodium [Stool Softener-Laxative] 8.6-50 mg Tablet 1 tab PO DAILY PRNQty: 30 0RF acetaminophen [Acetaminophen Pain Relief] 500 mg tablet 500 - 1,000 mg PO Q6H PRNQty: 100 0RF Rx Instructions: Do not take more than 3000 mg in a 24 hour period. celecoxib [Celebrex] 100 mg capsule 100 mg PO BID Qty: 60 2RF oxycodone 5 mg capsule 5 - 10 mg PO Q6H MDD 20 mg PRN (Reason: pain) Qty: 30 0RF Discharge Orders: Discharge Order (Routine); Ordered 07/01/22 Ordered By: Amy Berry Patient Education: Leg Fracture (ED), Patellar Fracture (ED), Patellar Fracture Repair (DC), Closed Reduction Internal Fixation of Leg Fracture in Adults (DC) Additional Instructions: [facility] on [facility]01 with a 1:10pm a rrival time. [facility] [address] [place] [id number] Patient will be discharged home, with crutches/walker if needed. WBAT. Follow-up with Orthopedics, she may decide to be seen by [facility] Prescription given for Percocet, keep leg elevated should be seen by Orthopedics within the next 48 hours, Activity Level: Weight Bearing as Tolerated and Other Activity Detail: May weight bear as tolerated bilateral lower extremities. Rt leg must be in immobilizer with Weightbearing/ambulating. No range of motion of right knee. left ankle/Lower extremity is in CAM boot. Ambulate frequently, every hour throughout the day and pump calves while at rest to prevent DVT. No driving. Assistive device/walker or crutches as needed. Discharge Diet: Regular Follow Up Appointments: Steffi Ramos PA-C [Physician Human Services Professional] - (Follow-up with orthopedics in a week with new x-rays of the right knee and left ankle. If the ankle remains stable, will continue cam walker for 6 weeks. Will continue knee immobilizer for 6 weeks as well if the fracture remains nondisplaced. ) Provider,Not a Local [Primary Care Provider] - Forms: [employer] Info Instructions Discharge Comments: Return to work with the following restrictions: 1. No driving. 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
--- NOTE | 2022-07-01 07:41 | PC.NURSE ---
23-07: indep in room. c/o pain 2/10 in right knee,?declines need for pain medication. Pt stated that her left ankle feels great in the boot and that she is able to bear weight w/o pain. VS WNL.
[2022-07-01 08:00] VITALS: BP 110/74; PULSE 71; RESP 16; TEMP 36.3; O2SAT 97
[2022-07-01] MEDS: ACETAMINOPHEN 325 MG TABLET 975 MG PO (09:04)
[2022-07-01] MEDS: HYDROmorphone 2 MG TABLET PO (09:05)
--- NOTE | 2022-07-01 09:18 | PM.ORPN ---
Subjective Subjective Time Seen by Provider: 09:00 Date Seen: 07/01/22 Principal diagnosis: Right patella fracture, left Barger A distal fibular fracture Interval history: The patient is doing well this morning. She is comfortable. She will be discharging to home. Ortho Exam Narrative Exam Narrative: Alert and oriented x3. Patient is in no acute distress. Converses without labored breathing. Hearing is grossly intact. Ambulates with a walker. Knee immobilizer needs adjustment is riding on her ankle, left foot is not appropriately placed in the Cam walker and needs adjustment. She is ambulating well with a walker about her room. Const Vital Signs, click to edit/add: Vital Signs - 24 hr 06/30/22 11:00 06/30/22 15:15 06/30/22 15:15 Temperature 98 F 97.9 F Pulse Rate [Left Dorsalis Pedis] 79 74 Pulse Rate [Right Pulse Oximeter] Respiratory Rate 16 16 16 Blood Pressure [Left Arm] Blood Pressure [Right Arm] 118/74 124/78 Pulse Oximetry 97 96 Oxygen Delivery Method Room Air Room Air 06/30/22 19:30 06/30/22 23:00 06/30/22 23:00 Temperature 98.1 F 97.7 F Pulse Rate [Left Dorsalis Pedis] 90 Pulse Rate [Right Pulse Oximeter] 69 69 Respiratory Rate 16 16 16 Blood Pressure [Left Arm] 122/69 Blood Pressure [Right Arm] 114/72 Pulse Oximetry 95 97 Oxygen Delivery Method Room Air Room Air 07/01/22 03:00 Temperature Pulse Rate [Left Dorsalis Pedis] Pulse Rate [Right Pulse Oximeter] Respiratory Rate 16 Blood Pressure [Left Arm] Blood Pressure [Right Arm] Pulse Oximetry Oxygen Delivery Method Room Air Documenting provider has reviewed patient's vital signs: yes Assessment and Plan Assessment and plan (1) Right patella fracture: Problem details: Date of injury 06/30/2022, work Status: Acute Assessment and Plan: The knee immobilizer in the right lower extremity is too low. It is right in on her ankle. It is also adjusted so that the side stays are medial and lateral instead of posterior on the brace. She is educated the knee immobilizer must be applied as high as possible on the thigh for best port of her patella fracture. She understands. Brace is adjusted for comfort and function. She will be able to discharge home today. She will not be able to drive. This is a work comp injury. She will likely not be able to drive for 6 weeks. She will follow up with Orthopedics next week. (2) Fracture of distal end of left fibula: Status: Acute Assessment and Plan: Patient's toes are hanging over the end of the Cam walker. Cam walker is removed and adjusted and she is educated that her heel must be all the way back into the boot and heel touching the bottom of the boot as well. She is able to adjust this on her own. Left lower extremity is much more comfortable after this adjustment.
--- NOTE | 2022-07-01 13:52 | PC.NURSE ---
PATIENT'S VSS AND AFEBRILE. LS CLEAR. PAIN CONTROLLED WITH DILAUDID AND TYLENOL. UP WITH SBA, WALKER AND GAIT BELT. SALINE LOCK DC'D. REVIEWED DC INSTRUCTIONS WITH PATIENT AND HER . ANSWERED QUESTIONS AND PATIENT DC'D HOME.
--- NOTE | 2022-07-05 16:30 | REH.OT ---
OT: Contacted patient to schedule home safety eval and patient declines need for HSE, reports she has obtained and ordered additional DME.
== END 2022-07-01 13:58 | disposition home or self-care (01) ==
LOC: ED 15:24 → MEDSURG 16:54
PROVIDERS: Family Medicine; Admitting Provider Family Medicine; Emergency Provider Family Medicine; Visit Provider Family Medicine
DX: S82.001A Unspecified fracture of right patella, initial encounter for closed fracture (principal); S82.091A Other fracture of right patella, initial encounter for closed fracture; S82.65XA Nondisplaced fracture of lateral malleolus of left fibula, initial encounter for closed fracture; M25.561 Pain in right knee; M25.572 Pain in left ankle and joints of left foot; Z87.891 Personal history of nicotine dependence; S99.912A Unspecified injury of left ankle, initial encounter; S89.91XA Unspecified injury of right lower leg, initial encounter; Z87.81 Personal history of (healed) traumatic fracture; Z98.890 Other specified postprocedural states; Y93.01 Activity, walking, marching and hiking; W01.0XXA Fall on same level from slipping, tripping and stumbling without subsequent striking against object, initial encounter; Y92.219 Unspecified school as the place of occurrence of the external cause; Y99.8 Other external cause status
CPT/HCPCS: 36415; 73562; 73610; 73721; 80048; 85025; 87631; 96361; 96374; 96375; 96376; 97110; 97116; 97161; 97165; 97530; 97535; 99284; A9270; G0378; G0379; J1170; J1885; J2405; J7030